=== PATIENT | male | born 1975 | race Caucasian/White ===

== ENCOUNTER 2017-02-21 04:49 | Inpatient (IN) ==
--- NOTE | 2017-02-21 05:46 | Emergency Department Note ---
Disposition Clinical Impression: Leg swelling Leg pain Qualifiers: Laterality: right Qualified Code(s): M79.604 - Pain in right leg Disposition: Still a Patient Condition: Fair Referrals: Swetha Caba CNP [Primary Care Provider] - Forms: ED Satisfaction Letter, Work/School Release General Adult HPI - General Chief complaint: ED General Medical Stated complaint: LEG PAIN Time Seen by Provider: 02/21/17 04:52 Source: patient, family Mode of arrival: ambulatory Limitations: no limitations Nursing Notes Reviewed: Yes Vital Signs Reviewed: Yes - History of Present Illness HPI Narrative: 41-year-old male presenting to the emergency department with a chief complaint of right lower extremity pain. Patient states approximately 2 weeks ago he went to his primary care physician for a mass he noted in his right groin. He was concerned it was a hernia. He states he had an ultrasound completed which showed lymphadenopathy. Since then he is started to have right lower extremity swelling and pain. He states it acutely got worse on Thursday. He states he is unable to walk now at this time. He describes chills and nausea and overall not feeling well. He denies any fevers or vomiting at home. He states the pain starts in his right groin in is a shooting sensation down his right leg towards his knee. He also describes unilateral leg swelling from the groin to the knee. Patient has no significant past medical history and 19 on any medications at this time. Patient states his primary care physician wanted to get a CT of the right lower extremity. Pain Scale: 10 - Related Data Home Medications Medication Instructions Recorded Confirmed Metformin 500 mg PO BID 10/12/14 10/12/14 Zoloft 200 mg PO DAILY 10/12/14 10/12/14 Previous Rx's Medication Instructions Recorded Gabapentin [Neurontin] 300 mg PO TID #90 capsule 10/15/14 Metformin [Glucophage] 500 mg PO BID tablet 10/15/14 Perphenazine [Trilafon] 2 mg PO HS #30 tablet 10/15/14 Sertraline [Zoloft] 200 mg PO DAILY #30 tablet 10/15/14 TraZODone 50 mg PO HS PRN 30 Days tablet 10/15/14 metFORMIN [Glucophage] 500 mg PO BIDWM #30 tablet 07/31/15 hydrOXYzine HCl [Hydroxyzine HCl] 25 mg PO Q6HR #20 tab 08/10/16 predniSONE [PredniSONE] 60 mg PO DAILY #15 tablet 08/10/16 Allergies Allergy/AdvReac Type Severity Reaction Status Date / Time acetaminophen [From Vicodin] Allergy Anaphylaxis Verified 02/21/17 04:49 hydrocodone [From Vicodin] Allergy Anaphylaxis Verified 02/21/17 04:49 Oxycodone [From Percocet] Allergy Anaphylaxis Verified 02/21/17 04:49 All systems ED: reviewed and negative except as stated. Constitutional: Reports: chills. Denies: fever Eyes: Reports: as per HPI ENT ED: Reports: as per HPI Cardiovascular: Denies: chest pain, palpitations Respiratory: Denies: cough, wheezes Gastrointestinal: Reports: abdominal pain, nausea. Denies: vomiting Genitourinary: Reports: as per HPI Musculoskeletal: Reports: as per HPI Integumentary: Denies: rash, abrasion Neurological: Reports: as per HPI Psychiatric: Reports: as per HPI Endocrine: Reports: as per HPI Hematological/Lymphatic: Reports: as per HPI Allergic/Immunologic: Reports: as per HPI Past Medical History - Past Medical History Attestation: Yes The following information was validated with the patient. Medical history: Reports: diabetes Surgical history: Reports: no surgical history Psychiatric history: Reports: depression, PTSD, prior suicide attempt, previous psychiatric hospitalization - Social History Smoking Status: Former smoker Smokeless Tobacco Status: No Alcohol use: Reports: occasionally Drug use: Reports: none Physical Exam - General Limitations: no limitations General appearance: alert, in no apparent distress - Head Head exam: atraumatic, normocephalic, normal inspection - Eye Eye exam: Present: normal appearance. Absent: scleral icterus, conjunctival injection - Chest Chest inspection: Present: normal inspection, symmetric chest wall rise. Absent : tenderness, rash - Respiratory Respiratory exam: Present: normal lung sounds bilaterally. Absent: respiratory distress, wheezes - Cardiovascular Cardiovascular exam: Present: regular rate, normal rhythm, normal heart sounds - Abdominal Exam Abdominal exam: Present: soft, tenderness. Absent: distention, guarding, rebound, rigidity Abdominal tenderness: Present: RLQ, LLQ, mild - Extremities Exam Extremities exam: Present: other (Right lower extremity has unilateral swelling in the thigh. Patient has severe pain on palpation on the entire thigh. Large palpable mass noted in the right groin. Distal pulses bilateral lower extremity 2+. Sensation intact bilateral lower extremities. No crepitus on palpation) - Neurological Exam Neurological exam: Present: alert, oriented X3 - Psychiatric Psychiatric exam: Present: normal affect, normal mood - Skin Skin exam: Present: warm, intact Course Course Narrative: 41-year-old male complaining of right lower extremity pain with a large palpable lymph node in the groin and and pain out of proportion. The patient is alert and oriented 3 in the room and stable vital signs at this time. We will obtain basic lab work including CBC, CMP, lactic acid. We will also perform a CT of the abdomen, pelvis and right lower extremity. Disposition pending results. Patient agrees with this plan. - Reevaluation(s) Reevaluation #1: Patient's lab results are within normal limits. CT results pending. I will sign the patient out to fellow resident in the day team for further management. The patient is alert and oriented 3 in the room with stable vital signs at this time. He agrees with this plan. Vital Signs Temperature 98.4 F 02/21/17 04:49 Pulse Rate 84 02/21/17 04:49 Respiratory Rate 16 02/21/17 04:49 Blood Pressure 112/67 02/21/17 04:49 O2 Sat by Pulse Oximetry 97 02/21/17 04:49 Temperature 98.4 F 02/21/17 04:49 Pulse Rate 94 02/21/17 07:24 Respiratory Rate 16 02/21/17 07:24 Blood Pressure 116/77 02/21/17 07:24 O2 Sat by Pulse Oximetry 96 02/21/17 07:24 Oxygen Delivery Oxygen Delivery Room Air Medical Decision Making - Lab Data Result diagrams: 02/21/17 05:45 02/21/17 05:45 Lab Results 02/21/17 02/21/17 02/21/17 Range/Units 05:45 05:45 07:26 WBC 10.8 (4.3-11.1) K/mcL RBC 4.62 (4.19-5.50) M/mcL Hgb 13.9 (12.9-16.9) g/dL Hct 40.6 (37.5-50.1) % MCV 87.9 (83.0-100.0) fL MCH 30.1 (28.0-33.3) pg MCHC 34.2 (31.6-35.5) g/dL RDW 11.9 (11.5-14.5) % Plt Count 262 (140-400) K/mcL MPV 9.2 L (9.4-12.4) fL Immature Gran % 0.5 (0-4) % Seg Neutrophils % 52.8 % Lymphocytes % 26.0 % Monocytes % 17.2 % Eosinophils % 2.4 % Basophils % 1.1 % Neutrophils # 5.7 (1.6-8.9) K/mcL Lymphocytes # 2.8 (0.6-4.6) K/mcL Monocytes # 1.9 H (0.0-1.3) K/mcL Eosinophils # 0.3 (0.0-0.6) K/mcL Basophils # 0.1 (0.0-0.2) K/mcL Sodium 136 (136-145) mEq/L Potassium 4.3 (3.5-4.5) mEq/L Chloride 101 (98-109) mEq/L Carbon Dioxide 27 (19-29) mEq/L BUN 20 (8-26) mg/dL Creatinine 0.93 (0.72-1.25) mg/dL Est GFR ( Amer) > 60 (> 60) Est GFR (Non-Af Amer) > 60 (> 60) BUN/Creatinine Ratio 22 (6-26) Glucose 295 H (70-99) mg/dL Calculated Osmolality 296 (280-300) Lactic Acid 1.0 (0.5-2.2) mmol/L Calcium 9.7 (8.6-10.8) mg/dL Total Bilirubin 0.4 (0.2-1.2) mg/dL Direct Bilirubin 0.2 (0.0-0.5) mg/dL Indirect Bilirubin 0.2 (0.0-1.2) mg/dL AST 12 (5-34) Units/L ALT 12 (0-55) Units/L Alkaline Phosphatase 132 H (38-126) Units/L Serum Total Protein 8.0 (6.0-8.3) g/dL Albumin 3.1 L (3.5-5.0) g/dL Globulin 4.9 H (2.4-3.5) g/dL Albumin/Globulin Ratio 0.6 L (1.1-2.2) Attestation Statement - Attestation Attestation: I examined this patient and my medical decision-making was reviewed with the Resident Physician. I agree with the documented findings, disposition and treatment plan as described except to the extent set forth below. Patient to ED with right leg swelling. Patient has been having pain in his right groin. Outpatient ultrasound that showed an enlarged lymph node. Saw his PCP today who recommended to come to the ED as he would not get a CT report back Week. On examination the patient is a moderate amount of swelling of the right thigh. No erythema. No warmth. Palpable inguinal lymphadenopathy. No axillary lymph nodes. Plan. Patient denies any cat scratches. He denies any symptoms of STI or possibility of STI. No night sweats. No weight loss. CT shows lymphadenopathy. Will check ultrasound rule out DVT. Will be signed out to day shift.
[2017-02-21 05:56] LABS: Basophils # 0.1 K/mcL (0.0-0.2); Basophils % 1.1 %; Eosinophils # 0.3 K/mcL (0.0-0.6); Eosinophils % 2.4 %; Hematocrit 40.6 % (37.5-50.1); Hemoglobin 13.9 g/dL (12.9-16.9); Immature Granulocytes % 0.5 % (0-4); Lymphocytes # 2.8 K/mcL (0.6-4.6); Mean Corpuscular HGB Conc 34.2 g/dL (31.6-35.5); Mean Corpuscular Hemoglobin 30.1 pg (28.0-33.3); Mean Corpuscular Volume 87.9 fL (83.0-100.0); Mean Platelet Volume 9.2 fL (9.4-12.4); Monocytes # 1.9 K/mcL (0.0-1.3); Monocytes % 17.2 %; Neutrophils # 5.7 K/mcL (1.6-8.9); Platelet Count 262 K/mcL (140-400); Red Blood Count 4.62 M/mcL (4.19-5.50); Red Cell Distribution Width 11.9 % (11.5-14.5); Segmented Neutrophils % 52.8 %
[2017-02-21 06:11] LABS: Alanine Aminotransferase 12 Units/L (0-55); Albumin 3.1 g/dL (3.5-5.0); Albumin/Globulin Ratio 0.6 (1.1-2.2); Alkaline Phosphatase 132 Units/L (38-126); Aspartate Amino Transferase 12 Units/L (5-34); BUN/Creatinine Ratio 22 (6-26); Bilirubin,Direct 0.2 mg/dL (0.0-0.5); Bilirubin,Indirect 0.2 mg/dL (0.0-1.2); Bilirubin,Total 0.4 mg/dL (0.2-1.2); Blood Urea Nitrogen 20 mg/dL (8-26); Calcium 9.7 mg/dL (8.6-10.8); Carbon Dioxide 27 mEq/L (19-29); Chloride 101 mEq/L (98-109); Globulin 4.9 g/dL (2.4-3.5); Glucose 295 mg/dL (70-99); Osmolality,Calculated 296 (280-300); Potassium 4.3 mEq/L (3.5-4.5); Sodium 136 mEq/L (136-145); eGFR For African Americans > 60 (> 60); eGFR For Non-African Americans > 60 (> 60)
[2017-02-21] MEDS ORDERED: Lidocaine/EPI 1:100k 1% 20 ML VIAL INFILT ONE (07:41)
--- NOTE | 2017-02-21 08:24 | Emergency Department Note ---
Disposition Clinical Impression: Leg swelling, Inguinal lymphadenopathy Leg pain Qualifiers: Laterality: right Qualified Code(s): M79.604 - Pain in right leg Disposition: Admitted As Inpatient Condition: Undetermined Time of Disposition: 10:29 Extremity Problem HPI - General Chief complaint: ED General Medical Stated complaint: LEG PAIN Time Seen by Provider: 02/21/17 04:52 Source: patient, family Mode of arrival: ambulatory Limitations: no limitations Nursing Notes Reviewed: Yes Vital Signs Reviewed: Yes - History of Present Illness HPI Narrative: 41-year-old male that was a signout from the 19 arrives to the emergency department with multiple complaints to include right inguinal lymphadenopathy and pain as well as swelling in his right lower extremity. The patient has had multiple visits to various physicians with regards to this in the past. CT scan demonstrates inguinal on the right side lymphadenopathy as well as a moderate right knee effusion. On physical exam the patient's right lower extremity is swelling without any erythema. The patient denies any sexually transmitted diseases, fevers, chills and primarily complains of pain. Patient denies any other complaints at this time. Pt Subjective Complaint: extremity pain, extremity swelling Onset (ago): week(s) (3) Consistency: constant, Worsening Injury Location: right, lower extremity Pain Scale: 10 Quality: aching Radiation: proximal, distal Improves with: nothing Worsens with: nothing Associated symptoms: Reports: denies other symptoms - Related Data Home Medications Medication Instructions Recorded Confirmed Doxycycline Hyclate [Vibramycin] 100 mg PO BID 02/21/17 02/21/17 Insulin Glargine,Hum.rec.anlog 14 unit SQ QPM 02/21/17 02/21/17 [Basaglar Kwikpen U-100] Sertraline [Zoloft] 25 mg PO BID 02/21/17 02/21/17 Allergies Allergy/AdvReac Type Severity Reaction Status Date / Time acetaminophen [From Vicodin] Allergy Anaphylaxis Verified 02/21/17 04:49 hydrocodone [From Vicodin] Allergy Anaphylaxis Verified 02/21/17 04:49 Oxycodone [From Percocet] Allergy Anaphylaxis Verified 02/21/17 04:49 All systems ED: reviewed and negative except as stated. Constitutional: Reports: chills. Denies: fever Eyes: Reports: as per HPI ENT ED: Reports: as per HPI Cardiovascular: Denies: chest pain, palpitations Respiratory: Denies: cough, wheezes Gastrointestinal: Reports: abdominal pain, nausea. Denies: vomiting Genitourinary: Reports: as per HPI Musculoskeletal: Reports: as per HPI Integumentary: Denies: rash, abrasion Neurological: Reports: as per HPI Psychiatric: Reports: as per HPI Endocrine: Reports: as per HPI Hematological/Lymphatic: Reports: as per HPI Allergic/Immunologic: Reports: as per HPI Past Medical History - Past Medical History Attestation: Yes The following information was validated with the patient. Source: patient Medical history: Reports: diabetes Surgical history: Reports: no surgical history Psychiatric history: Reports: depression, PTSD, prior suicide attempt, previous psychiatric hospitalization - Social History Smoking Status: Former smoker Smokeless Tobacco Status: No Alcohol use: Reports: occasionally Drug use: Reports: none Physical Exam - General Limitations: no limitations General appearance: alert, in no apparent distress - Head Head exam: atraumatic, normocephalic, normal inspection - Eye Eye exam: Present: normal appearance, PERRL, EOMI - ENT ENT exam: normal exam, normal oropharynx, mucous membranes moist - Neck Neck exam: Present: normal inspection, full ROM, trachea midline - Chest Chest inspection: Present: normal inspection, symmetric chest wall rise - Respiratory Respiratory exam: Present: normal lung sounds bilaterally - Cardiovascular Cardiovascular exam: Present: regular rate, normal rhythm, normal heart sounds - Abdominal Exam Abdominal exam: Present: soft, Non-Tender. Absent: tenderness, distention, guarding, rebound, rigidity - Extremities Exam Extremities exam: Present: full ROM, tenderness, other (Patient has enlarged right inguinal lymph node, full range of motion, tenderness to right inguinal lymph node as well as right side. The patient does have what appears to be a very superficial effusion of the right knee. It appears to superior to the knee joint itself and primarily associated with the patellar region.) Course - Consultations Consultation #1: I spoke Vital Signs Temperature 98.4 F 02/21/17 04:49 Pulse Rate 84 02/21/17 04:49 Respiratory Rate 16 02/21/17 04:49 Blood Pressure 112/67 02/21/17 04:49 O2 Sat by Pulse Oximetry 97 02/21/17 04:49 Temperature 98.4 F 02/21/17 04:49 Pulse Rate 78 02/21/17 11:33 Respiratory Rate 14 02/21/17 11:33 Blood Pressure 116/67 02/21/17 11:33 O2 Sat by Pulse Oximetry 96 02/21/17 11:33 Oxygen Delivery Oxygen Delivery Room Air Extremity Problem, Nontraumati - MDM Narrative Medical decision making narrative: Patient's workup here in the emergency department demonstrates a right inguinal lymphadenopathy. The patient does have a noted right knee effusion but this appears to be swelling associated and secondary to the patient's inguinal lymphadenopathy. I do not feel as though this is a septic joint as his knee is not erythematous and is not hot to the touch. We will begin the patient on Rocephin and azithromycin at this time with concern for possible infection. We will consult hematology and oncology. The patient's DVT study is negative for any acute findings. After speaking with orthopedic surgery, they did not recommend a tap of the knee at this time. We will admit the patient to the hospitalist with IV antibiotic therapy as well as consultation to about hematology and oncology and orthopedic surgery. Patient made aware and agrees to plan. Accepted by the hospitalist, Dr. Watson. - Lab Data Lab results reviewed: Yes I reviewed the patient's lab results. Result diagrams: 02/21/17 05:45 02/21/17 05:45 Lab Results 02/21/17 02/21/17 02/21/17 Range/Units 05:45 05:45 07:05 WBC 10.8 (4.3-11.1) K/mcL RBC 4.62 (4.19-5.50) M/mcL Hgb 13.9 (12.9-16.9) g/dL Hct 40.6 (37.5-50.1) % MCV 87.9 (83.0-100.0) fL MCH 30.1 (28.0-33.3) pg MCHC 34.2 (31.6-35.5) g/dL RDW 11.9 (11.5-14.5) % Plt Count 262 (140-400) K/mcL MPV 9.2 L (9.4-12.4) fL Immature Gran % 0.5 (0-4) % Seg Neutrophils % 52.8 % Lymphocytes % 26.0 % Monocytes % 17.2 % Eosinophils % 2.4 % Basophils % 1.1 % Neutrophils # 5.7 (1.6-8.9) K/mcL Lymphocytes # 2.8 (0.6-4.6) K/mcL Monocytes # 1.9 H (0.0-1.3) K/mcL Eosinophils # 0.3 (0.0-0.6) K/mcL Basophils # 0.1 (0.0-0.2) K/mcL ESR >= 130 H (0-10) mm/hr Sodium 136 (136-145) mEq/L Potassium 4.3 (3.5-4.5) mEq/L Chloride 101 (98-109) mEq/L Carbon Dioxide 27 (19-29) mEq/L BUN 20 (8-26) mg/dL Creatinine 0.93 (0.72-1.25) mg/dL Est GFR ( Amer) > 60 (> 60) Est GFR (Non-Af Amer) > 60 (> 60) BUN/Creatinine Ratio 22 (6-26) Glucose 295 H (70-99) mg/dL Calculated Osmolality 296 (280-300) Lactic Acid (0.5-2.2) mmol/L Calcium 9.7 (8.6-10.8) mg/dL Total Bilirubin 0.4 (0.2-1.2) mg/dL Direct Bilirubin 0.2 (0.0-0.5) mg/dL Indirect Bilirubin 0.2 (0.0-1.2) mg/dL AST 12 (5-34) Units/L ALT 12 (0-55) Units/L Alkaline Phosphatase 132 H (38-126) Units/L Creatine Kinase 56 (30-200) Units/L C-Reactive Protein 128 H (Less than 5) mg/L Serum Total Protein 8.0 (6.0-8.3) g/dL Albumin 3.1 L (3.5-5.0) g/dL Globulin 4.9 H (2.4-3.5) g/dL Albumin/Globulin Ratio 0.6 L (1.1-2.2) Chlam trachomat DNA PCR (Not Detect) N.gonorrhoeae DNA (PCR) (Not Detect) 02/21/17 02/21/17 Range/Units 07:26 09:29 WBC (4.3-11.1) K/mcL RBC (4.19-5.50) M/mcL Hgb (12.9-16.9) g/dL Hct (37.5-50.1) % MCV (83.0-100.0) fL MCH (28.0-33.3) pg MCHC (31.6-35.5) g/dL RDW (11.5-14.5) % Plt Count (140-400) K/mcL MPV (9.4-12.4) fL Immature Gran % (0-4) % Seg Neutrophils % % Lymphocytes % % Monocytes % % Eosinophils % % Basophils % % Neutrophils # (1.6-8.9) K/mcL Lymphocytes # (0.6-4.6) K/mcL Monocytes # (0.0-1.3) K/mcL Eosinophils # (0.0-0.6) K/mcL Basophils # (0.0-0.2) K/mcL ESR (0-10) mm/hr Sodium (136-145) mEq/L Potassium (3.5-4.5) mEq/L Chloride (98-109) mEq/L Carbon Dioxide (19-29) mEq/L BUN (8-26) mg/dL Creatinine (0.72-1.25) mg/dL Est GFR ( Amer) (> 60) Est GFR (Non-Af Amer) (> 60) BUN/Creatinine Ratio (6-26) Glucose (70-99) mg/dL Calculated Osmolality (280-300) Lactic Acid 1.0 (0.5-2.2) mmol/L Calcium (8.6-10.8) mg/dL Total Bilirubin (0.2-1.2) mg/dL Direct Bilirubin (0.0-0.5) mg/dL Indirect Bilirubin (0.0-1.2) mg/dL AST (5-34) Units/L ALT (0-55) Units/L Alkaline Phosphatase (38-126) Units/L Creatine Kinase (30-200) Units/L C-Reactive Protein (Less than 5) mg/L Serum Total Protein (6.0-8.3) g/dL Albumin (3.5-5.0) g/dL Globulin (2.4-3.5) g/dL Albumin/Globulin Ratio (1.1-2.2) Chlam trachomat DNA PCR NOT DETECTED (Not Detect) N.gonorrhoeae DNA (PCR) NOT DETECTED (Not Detect) - Radiology Data Radiology results reviewed: Yes I reviewed the patient's radiology results. Attestation Statement - Attestation Attestation: I examined this patient and my medical decision-making was reviewed with the Resident Physician, Dr. Webb. I agree with the documented findings, disposition and treatment plan as described except to the extent set forth below. Patient is a 41-year-old white male history of diabetes on insulin who presents to the emergency department with a three-week history of gradually worsening right inguinal adenopathy and associated groin pain. Patient states that this has gradually worsened to cause swelling and pain into his right thigh and medial aspect of his knee. Patient was signed out to us by Dr. Pacheco and the night custodian team, after their initial evaluation, order of baseline labs, CT abdomen and pelvis with contrast as well as a CT scan of the right lower extremity. Patient CT of the lower extremity with pending at the time of signout. We were told that patient denied any history of STDs no concern with possibility of contraction of an STD with GC or chlamydia. Patient does have a cat so unclear possible etiology Scratch fever adenopathy. On our assessment we added blood cultures, sedimentation rate and CRP. I agree with patient's physical exam findings as documented. Vital signs are stable. Pt with elevated blood sugar but no acidosis. Patient's CT scan confirms the inguinal adenopathy no intramuscular or joint infections and moderate knee effusion is noted. Clinically the majority of the edema that seen his distal thigh just superior to the patella and that seems to extend medially on the medial aspect of the knee. Patient has been on doxycycline for the past 6 days with no improvement of symptoms. His sedimentation rate is significantly elevated over 100, and CRP is elevated as well. Lower extremity venous Doppler was negative for DVT. He should also had an outpatient scrotal ultrasound by his family doctor prior to the ED evaluation. We went ahead and consult orthopedics from the emergency department and discussed the clinical progression with an hour whether they would tap this knee. I do not feel the etiology of this issue was from the knee and actually was from the groin and progressed distal. They agreed with holding off on any joint injection or aspiration and will consult on the patient. We also spoke with heme/onc who will also consult on the patient as well in regards to the adenopathy. Patient was covered with IV antibiotics cultures are pending. Case was discussed with hospitalist and the patient will be admitted for further evaluation and management of these symptoms. Patient's vital signs were stable throughout his ED course. Patient received IV the antibiotic coverage covering possible GC chlamydia exposure.
[2017-02-21 09:46] LABS: C-Reactive Protein 128 mg/L (Less than 5); Creatine Kinase 56 Units/L (30-200)
[2017-02-21] MEDS ORDERED: Azithromycin 250 MG TABLET PO ONE (09:59)
[2017-02-21] MEDS ORDERED: cefTRIAXone 1,000 MG in Water for inj. (sterile) 10 ML IVP ONE (09:59)
[2017-02-21] MEDS ORDERED: Doxycycline 100 MG in 0.9 % Sodium Chloride Mini Bag 100 ML IVPB ONE (10:07)
[2017-02-21] MEDS ORDERED: Ibuprofen 400 MG TABLET PO PRN (11:39)
[2017-02-21] MEDS ORDERED: Naloxone 0.4 MG/ML INJ IVP PRN (11:39)
[2017-02-21] MEDS ORDERED: Ondansetron 4 MG/2 ML VIAL IVP PRN (11:39)
[2017-02-21] MEDS ORDERED: D5% in Water 1,000 ML IVC PRN (11:47)
[2017-02-21] MEDS ORDERED: Dextrose Gel 15 GM PO PRN ×2 (11:47)
[2017-02-21] MEDS ORDERED: *HR* Dextrose 50 % in Water (Syg) 50 ML SYRINGE IVP PRN (11:47)
--- NOTE | 2017-02-21 12:57 | Internal Med History&Physical ---
<El [place]wood - Last Filed: 02/21/17 15:54> Date of Encounter: 02/21/17 Time of Encounter: 10:15 Assessment and Plan (1) Inguinal lymphadenopathy Current visit: Yes Status: Acute Acute right inguinal lymphadenopathy for the past three weeks. Pt. reports he is sexually active and exclusive w/girlfriend. Chlamydia and gonorrhea panels ordered. Blood cultures x2. Pt. reports he was seen previously for this and placed on by mouth doxycycline which he reports did not help. Pt. states he began having swelling and pain in the right knee as well 6 days ago. Cat scratch fever in differential dx d/t pts. report of cat climbing his leg. IVPB Zosyn 3.375 gm Q8 for infection coverage. Will adjust abx coverage based on culture results. Stair-step pain medications for pain mgmt. Ortho consult ordered in ED. Oncology consult ordered in ED. ID consult ordered. Monitor pt. and f/u labs. Pt. discussed w/Dr. aWtson who agrees w/plan of care. Pt. is high risk for further morbidity based on failing OP abx tx, current sx, worsening infection, and uncontrolled DM. Inpatient. (2) Pain and swelling of right knee Current visit: Yes Status: Acute Acute pain and edema in rt. knee for the past 6 days. Pt. reports difficulty w/ ambulation d/t pain/swelling. Appears infectious and r/t inguinal lymphadenopathy that has been present for the past three weeks. Possible cat scratch fever d/t pts. report of cat climbing his leg. IVPB Zosyn 3.375 gm Q8 for infection coverage. Blood cultures x2. Will adjust abx coverage based on culture results. Stair-step pain medications for pain mgmt. Ortho consult ordered in ED. Oncology consult ordered in ED. ID consult ordered. Monitor pt. and f/u labs. (3) Diabetes Current visit: Yes Status: Chronic Hx of chronic diabetes controlled w/insulin. Pt. reports non-compliance d/t being busy. Will continue pts. HS insulin and add low-dose correction sliding scale insulin w/hypoglycemic protocol. A1c in a.m. labs. BG checks ACHS. Diabetes education consult ordered. ADA diet. 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 Monitor pt. for signs of bleeding. Internal Medicine - H&P: HPI Chief complaint: Right groin and right knee pain Admitted From: Emergency Dept Plans for Post Hospital Care: Home History of present illness: Mr. Serra is a 41 year old male with medical hx of diabetes controlled with insulin presents from the ED with chief complaint of swollen lymph glands in the right groin for the past three weeks that progressed to swollen right knee within the past 6 days. Pt. denies previous sx prior to this. Pt. reports he was seen previously for this and was placed on PO doxycycline. He states he completed 7 of the 10 days and the abx was not helping his sx so he came to ED. Pt. reports he is sexually active and exclusive w/his girlfriend who is present on exam. Both report being tested for STDs prior to dating several years ago. Pt. reports hx of depression, PTSD, prior suicide attempt, and previous psychiatric hospitalization. Pt. reports smoking 1 PPD but quitting 3 weeks ago when these sx started. Pt. has familial hx of cancer that he is anxious about. Pt. reports mild nausea and itchiness on the right leg w/several scabbed sores but denies recent illness, fever, chills, vomiting, chest pain, palpitations, cough, abdominal pain, changes in vision, unusual bleeding, diarrhea, constipation, weakness, dizziness, lightheadedness, pre-syncope, or syncope. Past Med Surg Social Fam HX - Past Medical History Source: patient, old records reviewed, obtained from family Medical history: diabetes (Insulin controlled) Psychiatric history: depression, PTSD, prior suicide attempt, previous psychiatric hospitalization - Past Surgical History Surgical History: no surgical history - Social History Smoking Status: Former smoker Packs per day: 1 PPD Smokeless Tobacco Status: No Alcohol use: occasionally Drug use: none Occupational status: employed Current living situation: Home, With Family Activity Level: Independent ambulation Recent Out of Country Travel Within the Last 8 Weeks: No Exposure or Possible Exposure to Illness During Travel: No - Family History Father Race: Family Member Ethnicity: Non- Living Status: Age at : 63 Cause of : Pancreatic cancer Hx Family Cancer: Yes (Liver, pancreatic, gallbladder tumors) Mother Race: Family Member Ethnicity: Non- Living Status: Still Living Hx Family Medical Disorders: No Brother Race: Family Member Ethnicity: Non- Living Status: Still Living Hx Family Medical Disorders: No Sister Race: Family Member Ethnicity: Non- Living Status: Still Living Hx Family Medical Disorders: No Internal Medicine - H&P: Meds Doxycycline Hyclate [Vibramycin] 100 mg PO BID 02/21/17 [History] Insulin Glargine,Hum.rec.anlog [Basaglar Kwikpen U-100] 14 unit SQ QPM 02/21/17 [History] Sertraline [Zoloft] 25 mg PO BID 02/21/17 [History] 3 Allergy/AdvReac Type Severity Reaction Status Date / Time acetaminophen [From Vicodin] Allergy Anaphylaxis Verified 02/21/17 04:49 hydrocodone [From Vicodin] Allergy Anaphylaxis Verified 02/21/17 04:49 Oxycodone [From Percocet] Allergy Anaphylaxis Verified 02/21/17 04:49 All Systems PM: A 10-system review of systems was performed and is negative for pertinent findings except as documented above in the HPI. - Constitutional Constitutional: no chills, no fever(s), no night sweats - EENT Eyes: no change in vision, no discharge, no pain, no photophobia Ears: no ear discharge, no ear pain, no tinnitus Nose, mouth and throat: no dysphagia, no nasal discharge, no neck pain, no sore throat - Breasts Breasts: as per HPI - Cardiovascular Cardiovascular ROS IM: no chest pain, no diaphoresis, no dyspnea, no lightheadedness, no palpitations, no syncope - Respiratory Respiratory: no cough, no dyspnea, no wheezing, no excessive phlegm production - Gastrointestinal Gastrointestinal: no abdominal pain, no diarrhea, no hematemesis, no hematochezia, no melena, no nausea, no vomiting - Genitourinary Genitourinary ROS male: as per HPI, other (Right inguinal pain and swelling) - Musculoskeletal Musculoskeletal ROS IM: no numbness, no tingling - Integumentary Integumentary IM: as per HPI, sores Additional comments: Pt. has several scabbed sores on right thigh. Pt. reports having a cat that sometimes climbs his leg. - Neurological Neurological ROS: no confusion, no convulsions, no focal weakness, no numbness, no tingling, no tremor(s) - Psychiatric Psychiatric: as per HPI, depression, other Additional comments: PTSD, prior suicide attempt, previous psychiatric hospitalization - Endocrine Endocrine IM: as per HPI - Hematologic/Lymphatic Hematologic/Lymphatic: no easy bruising - Allergic/Immunologic Allergic/Immunologic: as per HPI - Constitutional Vitals: Temp Pulse Resp BP Pulse Ox 98.4 F 78 14 116/67 96 02/21/17 04:49 02/21/17 11:33 02/21/17 11:33 02/21/17 11:33 02/21/17 11:33 General appearance: Present: cooperative, mild distress, A&O X 3, pleasant, answers questions appropriately - Head Head exam: Present: atraumatic, normal inspection, normocephalic - Eye Eye exam: Present: PERRL, conjuntiva pink, sclera anicteric Pupils: Present: PERRL - ENT ENT exam: Present: normal exam, normal external ear exam - Neck Neck exam general surgery: Present: normal inspection, supple, trachea midline. Absent: lymphadenopathy - Respiratory Respiratory exam: Present: CTAB. Absent: accessory muscle use, rales, rhonchi, wheezes - Cardiovascular Cardiovascular exam: Present: RRR, +S1, +S2. Absent: diastolic murmur, gallop, rubs, systolic murmur - GI/Abdominal GI/Abdominal exam: Present: normal bowel sounds, soft, no peritoneal signs. Absent: distended, tenderness - Rectal Rectal exam: Present: deferred - Additional comments: exam deferred. - Extremities Exam Extremities exam: Present: joint swelling (Right knee), tenderness (Right knee) , warm (Right knee) - Back Exam Back exam: Present: normal inspection - Neurological Exam Neurological exam: Present: CN II-XII intact, oriented X3, no focal deficits. Absent: pronater drift, facial droop, speech deficit - Psychiatric Psychiatric exam: Present: anxious (When discussing cancer ), normal affect, normal mood - Skin Skin exam: Present: dry, intact Additional comments: Pt. has several scabbed sores present on right thigh. Pt. reports they have a cat that sometimes climbs his leg. Internal Med - H&P Results - Labs CBC & Chem 7: 02/21/17 05:45 02/21/17 05:45 - Diagnostic Studies Other Images Additional comments: Impressions Lower Extremity CT 02/21/17 06:31 IMPRESSION: 1. Indeterminate right external iliac chain and inguinal lymphadenopathy. Cannot exclude neoplastic origin versus reactive etiology. 2. Moderate right knee joint effusion. D/ / 02/21/2017 09:44:09 Hu Núñez MD / soraya Interpreting Provider: Hu Núñez MD Chest x-ray Additional comments: Impressions Chest X-Ray 02/21/17 05:24 IMPRESSION: No acute process. D/ / Hu Núñez MD / Hu Núñez MD Interpreting Provider: Hu Núñez MD CT scan - abdomen Additional comments: Impressions Abdomen/Pelvis CT 02/21/17 05:14 IMPRESSION: Indeterminate right external iliac chain and right inguinal lymphadenopathy. Otherwise unremarkable study. D/ / 02/21/2017 09:15:23 Hu Núñez MD / soraya Interpreting Provider: Hu Núñez MD <Yoli Watson - Last Filed: 02/21/17 16:12> Date of Encounter: 02/21/17 Internal Medicine - H&P: HPI History of present illness: Mr. Serra is a 41 year old male All Systems PM: A 10-system review of systems was performed and is negative for pertinent findings except as documented above in the HPI. - Constitutional Vitals: Temp Pulse Resp BP Pulse Ox 98.8 F 81 16 100/69 97 02/21/17 14:22 02/21/17 14:22 02/21/17 14:22 02/21/17 14:22 02/21/17 14:22 Internal Med - H&P Results - Labs CBC & Chem 7: 02/21/17 05:45 02/21/17 05:45 - Attending Attestation I examined this patient and my medical decision-making was reviewed with the Resident Physician. I agree with the documented findings, disposition and treatment plan as described except to the extent set forth below.
[2017-02-21] MEDS: Ketorolac 30 MG/ML VIAL IVP PRN (14:26)
[2017-02-21] MEDS: Piperacillin/Tazobactam 3.375 GM/200 ML BAG IVPB SCH (16:50)
[2017-02-21] MEDS: Insulin LISPRO 300 UNITS/3 ML VIAL SQ SCH ×2 (16:50→21:44)
[2017-02-21] MEDS: Insulin DETEMIR 100 UNIT/ML X5UNITS SQ SCH (18:42)
[2017-02-21 20:17] LABS: Source,Synovial Fluid Right knee
[2017-02-21 23:17] LABS: Appearance,Synovial Fluid Hazy (Clear-Hazy); Color,Synovial Fluid Straw (Straw)
[2017-02-22] MEDS: Piperacillin/Tazobactam 3.375 GM/200 ML BAG IVPB SCH ×3 (00:09→16:48)
--- NOTE | 2017-02-22 01:22 | Orthopedic Consult Note ---
Date of Encounter: 02/22/17 Time of Encounter: 18:30 Assessment and Plan (1) Pain and swelling of right knee Current Visit: Yes Status: Acute possible septic knee An aspiration of the knee will be performed. Informed consent was obtained. Continue IV abx. Procedure: The right knee was prepped with Hibiclens. An 18-gauge needle was inserted superior and lateral. I aspirated 40 mL of clear straw-colored fluid. The fluid was sent off for cultures, cell count and crystals. The patient ordered procedure well. His range of motion improved immediately. History of Present Illness Chief complaint: Right knee pain HPI: Mr. Serra is a 41 year old male with a 3 wk h/o R groin pain and swelling. Pt was treated with outpatient po abx and failed tx. He reports right knee swelling since thursday that has been worsening. Pt has a significant PMH of IDDM. No h/o trauma. Denies STDs. No fevers or chills. He reports childhood trauma to the knee with a metal spike that penetrated his knee. The patient reports some improvement in his groin since admission with IV abx. Past Med Surg Social Fam HX - Past Medical History Medical history: diabetes (Insulin controlled) Psychiatric history: depression, PTSD, prior suicide attempt, previous psychiatric hospitalization - Past Surgical History Surgical History: no surgical history - Social History Smoking Status: Former smoker Packs per day: 1 PPD Smokeless Tobacco Status: No Alcohol use: occasionally Drug use: none - Family History Father Race: Family Member Ethnicity: Non- Living Status: Age at : 63 Cause of : Pancreatic cancer Hx Family Cancer: Yes (Liver, pancreatic, gallbladder tumors) Mother Race: Family Member Ethnicity: Non- Living Status: Still Living Hx Family Medical Disorders: No Brother Race: Family Member Ethnicity: Non- Living Status: Still Living Hx Family Medical Disorders: No Sister Race: Family Member Ethnicity: Non- Living Status: Still Living Hx Family Endocrine Disorder: Yes (DM) Hx Family Medical Disorders: No Medications and Allergies Doxycycline Hyclate [Vibramycin] 100 mg PO BID 02/21/17 [History] Insulin Glargine,Hum.rec.anlog [Basaglar Kwikpen U-100] 14 unit SQ QPM 02/21/17 [History] Sertraline [Zoloft] 25 mg PO BID 02/21/17 [History] 3 Allergy/AdvReac Type Severity Reaction Status Date / Time acetaminophen [From Vicodin] Allergy Anaphylaxis Verified 02/21/17 04:49 hydrocodone [From Vicodin] Allergy Anaphylaxis Verified 02/21/17 04:49 Oxycodone [From Percocet] Allergy Anaphylaxis Verified 02/21/17 04:49 All Systems Reviewed: A 10-system review of systems was performed and is negative for pertinent findings except as documented above in the HPI. - Musculoskeletal Musculoskeletal: joint swelling, limited range of motion Physical Exam - Constitutional Vitals: Temp Pulse Resp BP Pulse Ox 98.4 F 70 16 101/63 98 02/21/17 22:53 02/21/17 22:53 02/21/17 22:53 02/21/17 22:53 02/21/17 22:53 - Hip right Tenderness with palpation: anterior (palpable enlarged lymph nodes in groin, tender) - Knee right Appearance: effusion (no erythema) Effusion grade: grade 2 Tenderness with palpation knee: anterior Pain: with flexion Full ROM: yes (0-30) Crepitus with motion: No Results - Labs Result Diagrams: 02/22/17 04:34 02/22/17 04:34 Labs: Abnormal lab results MPV 9.2 fL (9.4-12.4) L 02/21/17 05:45 Monocytes # 1.9 K/mcL (0.0-1.3) H 02/21/17 05:45 ESR >= 130 mm/hr (0-10) H 02/21/17 07:05 Glucose 295 mg/dL (70-99) H 02/21/17 05:45 POC Glucose 285 (58-89) H 02/21/17 20:52 Alkaline Phosphatase 132 Units/L (38-126) H 02/21/17 05:45 C-Reactive Protein 128 mg/L (Less than 5) H 02/21/17 05:45 Albumin 3.1 g/dL (3.5-5.0) L 02/21/17 05:45 Globulin 4.9 g/dL (2.4-3.5) H 02/21/17 05:45 Albumin/Globulin Ratio 0.6 (1.1-2.2) L 12/16/17 05:45 Synovial Tot Nuc Cell 2793 TNC/mcL (0-200) H 02/21/17 19:49 All other labs normal. - Diagnostic results Knee CT: image reviewed (R knee effusion) Consult Discharge Plan - Plan Referrals: Swetha Caba, ANALYTICAL RESEARCH CHEMIST [Primary Care Provider] -
[2017-02-22 05:07] LABS: Basophils # 0.2 K/mcL (0.0-0.2); Basophils % 1.4 %; Eosinophils # 0.5 K/mcL (0.0-0.6); Eosinophils % 4.7 %; Hematocrit 40.1 % (37.5-50.1); Hemoglobin 13.6 g/dL (12.9-16.9); Immature Granulocytes % 0.4 % (0-4); Lymphocytes # 3.3 K/mcL (0.6-4.6); Lymphocytes % 29.4 %; Mean Corpuscular HGB Conc 33.9 g/dL (31.6-35.5); Mean Corpuscular Hemoglobin 30.8 pg (28.0-33.3); Mean Corpuscular Volume 90.9 fL (83.0-100.0); Mean Platelet Volume 9.4 fL (9.4-12.4); Monocytes # 1.7 K/mcL (0.0-1.3); Monocytes % 15.6 %; Neutrophils # 5.4 K/mcL (1.6-8.9); Platelet Count 257 K/mcL (140-400); Red Blood Count 4.41 M/mcL (4.19-5.50); Red Cell Distribution Width 12.1 % (11.5-14.5); Segmented Neutrophils % 48.5 %
[2017-02-22 05:30] LABS: Alanine Aminotransferase 11 Units/L (0-55); Albumin 2.8 g/dL (3.5-5.0); Albumin/Globulin Ratio 0.6 (1.1-2.2); Alkaline Phosphatase 102 Units/L (38-126); Aspartate Amino Transferase 13 Units/L (5-34); BUN/Creatinine Ratio 22 (6-26); Bilirubin,Total 0.5 mg/dL (0.2-1.2); Blood Urea Nitrogen 20 mg/dL (8-26); Calcium 9.1 mg/dL (8.6-10.8); Carbon Dioxide 27 mEq/L (19-29); Chloride 104 mEq/L (98-109); Chol/HDL Ratio 3.3 (0-4.9); Cholesterol 103 mg/dL (< 200); Globulin 4.6 g/dL (2.4-3.5); Glucose 137 mg/dL (70-99); HDL Cholesterol 31 mg/dL (40-59); LDL Cholesterol,Calculated 64 mg/dL (0-99); Magnesium 1.7 mg/dL (1.6-2.6); Osmolality,Calculated 293 (280-300); Potassium 4.3 mEq/L (3.5-4.5); Sodium 139 mEq/L (136-145); Total Protein 7.4 g/dL (6.0-8.3); Triglycerides 40 mg/dL (< 150); eGFR For African Americans > 60 (> 60); eGFR For Non-African Americans > 60 (> 60)
[2017-02-22] MEDS: *HR* Enoxaparin 40 MG/0.4 ML SYRINGE SQ SCH (06:08)
[2017-02-22] MEDS: Insulin LISPRO 300 UNITS/3 ML VIAL SQ SCH ×4 (08:36→20:20)
[2017-02-22] MEDS: Ketorolac 30 MG/ML VIAL IVP PRN ×2 (08:40→20:22)
--- NOTE | 2017-02-22 14:03 | Orthopedics Progress Note ---
Date of Encounter: 02/22/17 Time of Encounter: 14:00 - Assessment and Plan (1) Pain and swelling of right knee Current Visit: Yes Status: Acute The Gram stain was positive for few cocci. However the cell count was only 2k. Clinically he does not have a septic knee. We will continue observation. Continue IV antibiotics. Also add an NSAID and obtain x-rays of the knee. Subjective Principal diagnosis: Right knee effusion Interval history: Patient reports significant improvement in pain. Physical exam: Right knee has mild swelling with a grade 1 effusion. There is no warmth noted tenderness. He has full range of motion of the knee. No swelling distally and vessels intact distally. Inguinal lymph nodes distal swollen, patient reports that they feel smaller and is no longer tender. Objective Vital signs: Vital Signs Temp Pulse Resp BP Pulse Ox 02/22/17 10:59 98 F 77 19 104/60 93 02/22/17 07:04 98.4 F 83 16 105/69 93 02/22/17 04:20 98.2 F 72 16 111/71 96 02/21/17 22:53 98.4 F 70 16 101/63 98 02/21/17 19:16 98.5 F 76 16 101/58 97 02/21/17 14:22 98.8 F 81 16 100/69 97 Intake and Output 02/21/17 02/22/17 02/22/17 23:59 07:59 15:59 Intake Total 50 / 50 200 / 200 570 / 570 Balance 50 / 50 200 / 200 570 / 570 Intake: IV Fluids 50 / 50 200 / 200 150 / 150 Zosyn Premix 3.375 GM/200 ML 3. 50 / 50 200 / 200 150 / 150 375 gm In 200 ml @ 50 mls/hr IVPB Q8H [facility] Rx#:[id number] Oral 420 / 420 Other: Meal Breakfast Percent of Meal Consumed 100% Blood Glucose* 285 151 311 Incision: swollen - Labs CBC & BMP: 02/22/17 04:34 02/22/17 04:34 Labs: Abnormal lab results WBC 11.2 K/mcL (4.3-11.1) H 02/22/17 04:34 Monocytes # 1.7 K/mcL (0.0-1.3) H 02/22/17 04:34 ESR >= 130 mm/hr (0-10) H 02/21/17 07:05 Glucose 137 mg/dL (70-99) H 02/22/17 04:34 POC Glucose 285 (58-89) H 02/21/17 20:52 C-Reactive Protein 128 mg/L (Less than 5) H 02/21/17 05:45 Albumin 2.8 g/dL (3.5-5.0) L 02/22/17 04:34 Globulin 4.6 g/dL (2.4-3.5) H 02/22/17 04:34 Albumin/Globulin Ratio 0.6 (1.1-2.2) L 02/22/17 04:34 HDL Cholesterol 31 mg/dL (40-59) L 02/22/17 04:34 Synovial Tot Nuc Cell 2793 TNC/mcL (0-200) H 02/21/17 19:49 Consult Discharge Plan - Plan Referrals: Swetha Caba, CONE WORKER [Primary Care Provider] -
--- NOTE | 2017-02-22 15:20 | Internal Med Progress Note ---
Date of Encounter: 02/22/17 Time of Encounter: 15:18 - Assessment and plan (1) Effusion, right knee Current Visit: Yes Status: Acute Assessment and plan: with acute pain and edema to right knee for 6 days prior to presentation. Right lower extremity CT with moderate right knee joint effusion. S/p right knee aspiration. Also does not suspect septic knee based upon fluid analysis. Continue IV Zosyn, NSAID. Right knee x-ray pending. Ortho following. ID consulted (2) Inguinal lymphadenopathy Current Visit: Yes Status: Acute Assessment and plan: With acute right leg pain and swollen right inguinal lymph node. Right lower extremity CT with right external iliac chain and inguinal lymphadenopathy concerning for neoplastic or reactive etiology. Patient reports significant improvement in swelling and pain after right knee aspiration. ESR and CRP markedly elevated. Etiology unknown at this time. Cont ATB as noted above. Oncology and infectious disease consulted (3) Diabetes Current Visit: Yes Status: Chronic Assessment and plan: per hx. Blood sugars elevated. Cont home long-acting. Add SSI. Monitor blood sugar and titrate PRN Qualifiers: Diabetes mellitus type: type 2 Diabetes mellitus complication status: without complication Diabetes mellitus buttermilk drier operator insulin use: with buttermilk drier operator use Qualified Code(s): E11.9 - Type 2 diabetes mellitus without complications ; Z79.4 - terminal worker (current) use of insulin; Z79.4 - senior care (current) use of insulin; Z79.4 - senior care (current) use of insulin; Z79.4 - senior care ( current) use of insulin (4) DVT prophylaxis Current Visit: Yes Status: Acute Assessment and plan: lovenox - Time Spent With Patient 25 - 35 minutes - Subjective Interval history: Seen and examined at bedside. Patient is new to me, information obtained from chart review and patient report. Patient report some knee discomfort but overall significantly improved. He says swelling to right thigh and right groin is significantly improved. No fevers or chills, no drainage from right knee aspiration site. - Constitutional Vitals: Temp Pulse Resp BP Pulse Ox 98 F 77 19 104/60 93 02/22/17 10:59 02/22/17 10:59 02/22/17 10:59 02/22/17 10:59 02/22/17 10:59 General appearance: Present: cooperative, A&O X 3, pleasant, answers questions appropriately - Head Head exam: Present: atraumatic, normocephalic - Eye Eye exam: Present: PERRL, conjuntiva pink, sclera anicteric Pupils: Present: PERRL - Neck Neck exam general surgery: Present: supple, trachea midline. Absent: lymphadenopathy - Respiratory Respiratory exam: Present: CTAB. Absent: accessory muscle use, rales, rhonchi, wheezes - Cardiovascular Cardiovascular exam: Present: RRR, +S1, +S2. Absent: diastolic murmur, gallop, rubs, systolic murmur - GI/Abdominal GI/Abdominal exam: Present: normal bowel sounds, soft, no peritoneal signs. Absent: distended, tenderness - Extremities Exam Extremities exam: Present: pedal edema, warm, radial pulses palpable and symmetrical. Absent: calf tenderness, cyanotic Additional comments: trace, nonpitting edema in to right leg from knee to thigh. Enlarged right inguinal lymph node - Neurological Exam Neurological exam: Present: CN II-XII intact, oriented X3, no focal deficits. Absent: pronater drift, facial droop, speech deficit - Skin Skin exam: Present: dry, intact Internal Medicine: Result - Labs CBC & Chem 7: 02/22/17 04:34 02/22/17 04:34 Labs: Short CBC 02/22/17 Range/Units 04:34 WBC 11.2 H (4.3-11.1) K/mcL Hgb 13.6 (12.9-16.9) g/dL Hct 40.1 (37.5-50.1) % Plt Count 257 (140-400) K/mcL Neutrophils # 5.4 (1.6-8.9) K/mcL BMP 02/22/17 04:34 Sodium 139 Potassium 4.3 Chloride 104 Carbon Dioxide 27 BUN 20 Creatinine 0.91 Glucose 137 H Calcium 9.1 Liver Function 02/22/17 Range/Units 04:34 Total Bilirubin 0.5 (0.2-1.2) mg/dL AST 13 (5-34) Units/L ALT 11 (0-55) Units/L Alkaline Phosphatase 102 (38-126) Units/L Albumin 2.8 L (3.5-5.0) g/dL Consult Discharge Plan - Plan Referrals: Swetha Caba, PHARMACIST MANAGER [Primary Care Provider] -
[2017-02-22] MEDS: Insulin DETEMIR 100 UNIT/ML X5UNITS SQ SCH (20:22)
[2017-02-22] MEDS: Ibuprofen 400 MG TABLET PO SCH (20:22)
[2017-02-23] MEDS: Ibuprofen 400 MG TABLET PO SCH ×3 (00:07→12:07)
[2017-02-23] MEDS: Piperacillin/Tazobactam 3.375 GM/200 ML BAG IVPB SCH ×2 (00:08→08:11)
[2017-02-23] MEDS: *HR* Enoxaparin 40 MG/0.4 ML SYRINGE SQ SCH (06:07)
[2017-02-23] MEDS: Ketorolac 30 MG/ML VIAL IVP PRN ×2 (06:07→12:06)
[2017-02-23 06:15] LABS: Basophils # 0.1 K/mcL (0.0-0.2); Basophils % 1.3 %; Eosinophils # 0.6 K/mcL (0.0-0.6); Hematocrit 38.7 % (37.5-50.1); Hemoglobin 12.9 g/dL (12.9-16.9); Immature Granulocytes % 0.7 % (0-4); Lymphocytes # 3.2 K/mcL (0.6-4.6); Lymphocytes % 34.9 %; Mean Corpuscular HGB Conc 33.3 g/dL (31.6-35.5); Mean Corpuscular Hemoglobin 29.7 pg (28.0-33.3); Mean Corpuscular Volume 89.2 fL (83.0-100.0); Mean Platelet Volume 9.1 fL (9.4-12.4); Monocytes # 1.3 K/mcL (0.0-1.3); Monocytes % 14.2 %; Neutrophils # 3.9 K/mcL (1.6-8.9); Platelet Count 284 K/mcL (140-400); Red Blood Count 4.34 M/mcL (4.19-5.50); Red Cell Distribution Width 11.8 % (11.5-14.5); Segmented Neutrophils % 42.9 %
[2017-02-23 06:26] LABS: Alanine Aminotransferase 13 Units/L (0-55); Albumin 2.6 g/dL (3.5-5.0); Albumin/Globulin Ratio 0.6 (1.1-2.2); Alkaline Phosphatase 105 Units/L (38-126); Aspartate Amino Transferase 13 Units/L (5-34); BUN/Creatinine Ratio 21 (6-26); Bilirubin,Total 0.3 mg/dL (0.2-1.2); Blood Urea Nitrogen 20 mg/dL (8-26); Calcium 8.7 mg/dL (8.6-10.8); Carbon Dioxide 28 mEq/L (19-29); Chloride 105 mEq/L (98-109); Globulin 4.4 g/dL (2.4-3.5); Glucose 200 mg/dL (70-99); Osmolality,Calculated 294 (280-300); Potassium 4.1 mEq/L (3.5-4.5); Sodium 138 mEq/L (136-145); eGFR For African Americans > 60 (> 60); eGFR For Non-African Americans > 60 (> 60)
[2017-02-23] MEDS: Insulin LISPRO 300 UNITS/3 ML VIAL SQ SCH ×2 (08:10→12:06)
--- NOTE | 2017-02-23 09:10 | Orthopedics Progress Note ---
Date of Encounter: 02/23/17 Time of Encounter: 09:05 - Assessment and Plan (1) Pain and swelling of right knee Current Visit: Yes Status: Acute The Gram stain was positive for few cocci. Final cultures are negative. Low white cell count. Clinically he does not have a septic knee. Patient is still on IV antibiotics for inguinal lymphadenopathy, which is also improving. Continue NSAIDs. Start meloxicam 15 mg by mouth daily on discharge. Follow-up with Dr. Lopez on at 10 AM, at [facility]. Subjective Principal diagnosis: Right knee effusion Interval history: Patient reports significant improvement in pain. Physical exam: Right knee has mild swelling with a grade 1 effusion. No erythema. There is no warmth, no tenderness. He has full range of motion of the knee. No swelling distally and vessels intact distally. Inguinal lymph nodes still present but much smaller, nontender Objective Vital signs: Vital Signs Temp Pulse Resp BP Pulse Ox 02/23/17 07:35 98.1 F 71 17 106/68 93 02/23/17 00:00 97.9 F 70 16 120/68 96 02/22/17 19:22 98.1 F 81 16 120/72 98 02/22/17 16:16 97.7 F 84 19 131/74 95 02/22/17 10:59 98 F 77 19 104/60 93 Intake and Output 02/22/17 02/23/17 02/23/17 23:59 07:59 15:59 Intake Total 200 / 200 200 / 200 Balance 200 / 200 200 / 200 Intake: IV Fluids 200 / 200 200 / 200 Zosyn Premix 3.375 GM/200 ML 3. 200 / 200 200 / 200 375 gm In 200 ml @ 50 mls/hr IVPB Q8H [facility] Rx#:[id number] Other: Weight 79.968 kg Blood Glucose* 262 165 Patient Weight 02/23/17 23:59 Weight 79.968 kg Incision: swollen - Diagnostic Results Knee x-ray: image reviewed (No degenerative changes, very small effusion remaining) - Labs CBC & BMP: 02/23/17 05:35 02/23/17 05:35 Labs: Abnormal lab results MPV 9.1 fL (9.4-12.4) L 02/23/17 05:35 ESR 60 mm/hr (0-10) H 02/23/17 05:35 Glucose 200 mg/dL (70-99) H 02/23/17 05:35 POC Glucose 262 (58-89) H 02/22/17 19:19 C-Reactive Protein 52 mg/L (Less than 5) H 02/23/17 05:35 Albumin 2.6 g/dL (3.5-5.0) L 02/23/17 05:35 Globulin 4.4 g/dL (2.4-3.5) H 02/23/17 05:35 Albumin/Globulin Ratio 0.6 (1.1-2.2) L 02/23/17 05:35 HDL Cholesterol 31 mg/dL (40-59) L 02/22/17 04:34 Synovial Tot Nuc Cell 2793 TNC/mcL (0-200) H 02/21/17 19:49 Consult Discharge Plan - Plan Referrals: Froilan Lopez MD [Non-Partnered Physician] - 02/26/17 10:00 am Swetha Caba CNP [Primary Care Provider] -
[2017-02-23 11:24] VITALS: BP 117/68
--- NOTE | 2017-02-23 12:31 | Discharge Summary ---
Date of Encounter: 02/23/17 Time of Encounter: 12:31 - Discharge Diagnosis (1) Effusion, right knee Priority: Primary Status: Acute Comments: with acute pain and edema to right knee for 6 days prior to presentation. Right lower extremity CT with moderate right knee joint effusion. S/p right knee aspiration per ortho. Fluid analysis not indicative of septic knee. Treated with IV Zosyn, NSAID. Repeat right knee x-ray with decreased size of effusion. Evaluated by infectious disease who suspects cat scratch fever led to right inguinal lymphadenopathy which led to right knee effusion. Discharge home on azithromycin. Orthopedic follow-up scheduled. Will need to follow up with infectious disease and oncology if symptoms worsen or persist after 2-3 weeks. (2) Cat scratch fever Priority: Primary Status: Acute Comments: suspected. Presented with right inguinal lymphadenopathy and right knee effusion. Low suspicion for STD, HIV etiology as patient reports he was checked for STD and HIV approximately 2 years ago and has been in monogamous relationship since that time. Chlamydia and gonorrhea PCR negative. Patient does have a cat and reported Climbing on leg. Evaluated by infectious diseases suspected Cat scratch disease. Treated with IV Zosyn while inpatient, changed to azithromycin eye discharge. Follow-up with PCP and Ortho (3) Inguinal lymphadenopathy Priority: Primary Status: Acute Comments: secondary to right knee effusion. Pain and lymph node size significantly improved after right knee aspirated. Discussed with Oncology on 02/23/17 and no need for consultation at this time as symptoms are significantly improved. Continue ATB as noted above. Will need to follow up with infectious disease and oncology if symptoms persist and/or worsen over the next 2-3 weeks. (4) Diabetes Priority: Secondary Status: Chronic Comments: per hx. Cont home diabetes regimen. Qualifiers: Diabetes mellitus type: type 2 Diabetes mellitus complication status: without complication Diabetes mellitus police aide insulin use: with assisted use Qualified Code(s): E11.9 - Type 2 diabetes mellitus without complications ; Z79.4 - memorial designer (current) use of insulin; Z79.4 - memorial designer (current) use of insulin; Z79.4 - snf (current) use of insulin; Z79.4 - memorial designer ( current) use of insulin - Discharge Medications Prescriptions: Azithromycin [Zithromax Tri-Carlos Eduardo] 500 mg PO DAILY #4 tablet Home Medications: Insulin Glargine,Hum.rec.anlog [Savannah Lenz U-100] 14 unit SQ QPM 02/21/17 [History] Sertraline [Zoloft] 25 mg PO BID 02/21/17 [History] Azithromycin [Zithromax Tri-Carlos Eduardo] 500 mg PO DAILY #4 tablet 02/23/17 [Rx] Allergies/Adverse Reactions: 3 Allergy/AdvReac Type Severity Reaction Status Date / Time acetaminophen [From Vicodin] Allergy Anaphylaxis Verified 02/21/17 04:49 hydrocodone [From Vicodin] Allergy Anaphylaxis Verified 02/21/17 04:49 Oxycodone [From Percocet] Allergy Anaphylaxis Verified 02/21/17 04:49 Date of admission: 02/21/17 11:39 Primary care physician: Swetha Caba CNP Consults: 02/21/17 11:44 Consult to Infectious Diseases [CONS] Routine Consulting Provider: Infectious Disease [place] Reason for Consult: Patient has had lymphadenopathy in the right groin for three weeks that has now spread to the right knee w/i the past 6 days. Pt. denies multiple sex partners or drug use. Pt. was placed on PO doxycycline and completed 7/10 days before coming to ED. Afebrile w/some nausea. CRP 128 and ESR 130 on admission. Pt. reports having a cat that climbs his legs sometimes. Call Completed: No 02/21/17 13:27 Consult to Warehouse Associate Driver [CONS] Routine Comment: Reason for Consult: Pt. reports he is not compliant w/insulin coverage d/t time mgmt, work, etc. Please assess for dietary and education needs for better DM control. Discharging clinician: Melinda Lancaster Anticipated date of discharge: 02/23/17 - Patient Status Disposition: Home, Self-Care Condition: Good Functional capacity at discharge: independent ambulation Overall status at discharge: patient is progressing back to baseline - Discharge Instructions Instructions: Cat Scratch Disease (DC), Azithromycin (By mouth), Lymphadenopathy (GEN) Follow Up With: Froilan Lopez MD [Non-Partnered Physician] - 02/26/17 10:00 am Swetha Caba CNP [Primary Care Provider] - Additional Instructions: You will need to follow up with infectious disease and oncology if right groin lymph node remains enlarged or gets bigger in the next 2-3 weeks. - Diet and Activity Activity: increase activity as tolerated, resume usual activities as tolerated Diet: diabetic diet Interval History: Seen and examined at bedside. Patient said he had an uneventful night and would like to go home today. Says he feels significantly better. Swelling to right leg is almost gone and right inguinal lymph node swelling significantly improved as well. He reports mild right knee tenderness otherwise has no complaints. He is aware of need to follow up with or so. Also advised to follow-up with infectious disease and oncology if symptoms worsen or persist over the next 2-3 weeks. Hospital course: Mr. Serra is a 41 year old male - Time Spent with Patient Total time spent providing and/or coordinating discharge services: - Constitutional Vitals: Temp Pulse Resp BP Pulse Ox 98.8 F 74 17 117/68 94 02/23/17 11:24 02/23/17 11:24 02/23/17 11:24 02/23/17 11:24 02/23/17 11:24 General appearance: Present: cooperative, A&O X 3, pleasant, answers questions appropriately - Head Head exam: Present: atraumatic, normocephalic - Eye Eye exam: Present: PERRL, conjuntiva pink, sclera anicteric Pupils: Present: PERRL - Neck Neck exam general surgery: Present: supple, trachea midline. Absent: lymphadenopathy - Respiratory Respiratory exam: Present: CTAB. Absent: accessory muscle use, rales, rhonchi, wheezes - Cardiovascular Cardiovascular exam: Present: RRR, +S1, +S2. Absent: diastolic murmur, gallop, rubs, systolic murmur - GI/Abdominal GI/Abdominal exam: Present: normal bowel sounds, soft, no peritoneal signs. Absent: distended, tenderness - Extremities Exam Extremities exam: Present: warm, radial pulses palpable and symmetrical. Absent : calf tenderness, cyanotic, pedal edema Additional comments: Trivial nonpitting edema to right knee. Right inguinal lymph node mildly enlarged; significantly improved from yesterday's exam. - Neurological Exam Neurological exam: Present: CN II-XII intact, oriented X3, no focal deficits. Absent: pronater drift, facial droop, speech deficit - Skin Skin exam: Present: dry, intact
--- NOTE | 2017-02-23 13:28 | Infectious Disease Consult ---
Date of Encounter: 02/23/17 Time of Encounter: 13:26 Assessment and Plan (1) Inguinal lymphadenopathy Status: Acute Assessment and plan: Etiology unclear, but given clinical picture, consider Cat Scratch Disease. Location: Right inguinal area. Failed outpatient oral antibiotics. UTS of the area showed right inguinal adenopathy. CT of the abdomen and pelvis showed right external iliac chain lymphadenopathy as well. The patient does have extensive contact with cats in his own home and at work, but denies any known bites or scratches and I do not see an area of inoculation on exam. The patient reports clinical improvement since being on IV antibiotics. Continue Zosyn 3.375 grams IV Q8H for now. Duration of treatment depends on the clinical picture, but recommend a total of five days. Can switch to PO zithromax when ready for discharge to complete the course of treatment. Recommend close follow-up with PCP after discharge. If lymphadenopathy persists , consider biopsy and Hem/Onc consult. (2) Effusion, right knee Status: Acute Assessment and plan: Etiology unclear, but possibly secondary to lymphadenopathy. Ortho consulted and following. Status post arthrocentesis. 2793 PMNs. Culture negative. Doesn't appear to be septic arthritis, but the patient has been on oral antibiotics for six days prior to admission. Post-arthrocentesis x-ray shows a small residual effusion. Inflammatory markers are markedly improved. Recommend close follow-up with ortho. (3) Diabetes Status: Chronic Qualifiers: Diabetes mellitus type: type 2 Diabetes mellitus complication status: without complication Diabetes mellitus alf insulin use: with intermodal owner operator truck driver use Qualified Code(s): E11.9 - Type 2 diabetes mellitus without complications ; Z79.4 - intermodal owner operator truck driver (current) use of insulin; Z79.4 - intermodal owner operator truck driver (current) use of insulin; Z79.4 - intermodal owner operator truck driver (current) use of insulin; Z79.4 - residential ( current) use of insulin Infectious Disease HPI - Data of Consult Patient: new to practice Consult date: 02/23/17 Requesting Physician: Melinda Lancaster CNP Primary Care Provider: Swetha Caba CNP - Consult Narrative Reason for consult: Inguinal Lymphadenopathy History of present illness: Mr. Serra is a 41 year old male with history of depression, diabetes, and PTSD. The patient was admitted to the hospital February 21 for right inguinal lymphadenopathy. We are consulted February 23 for further recommendations regarding right knee effusion and right inguinal lymphadenopathy. Briefly, the patient's a 41-year-old male with past medical history as stated above. He reports that about 2 weeks ago he began to experience some discomfort in the right groin that he thought was just a pulled groin muscle. He states he subsequently developed increased swelling that he thought was a hernia. He states he was seen by his PCP and had an ultrasound of the area and was diagnosed with lymphadenopathy. He was started on doxycycline 6 days prior to admission, but states this did not help any. He states that last Thursday he was doing okay and morning he woke up with excruciating pain in the right knee and swelling of the right thigh. He states he was seen again by his PCP and instructed to come to the hospital for a CAT scan, but was unable to have this done as an outpatient and he ended up going to the ER on Thursday. On arrival to ER, the patient was afebrile and hemodynamically stable. His white blood cell count was normal. He did have an ESR greater than 130 with a CRP of 128. CT the abdomen and pelvis showed right external iliac chain lymphadenopathy. He also had a right lower survey CT scan that showed a right knee effusion. He was started on Rocephin and Zithromax and was admitted to the hospital for further evaluation. Since admission, the patient has remained afebrile and hemodynamically stable. His white blood cell count has survey normal. His ESR has improved to 60 with a CRP of 52. Orthopedics was consulted and performed an arthrocentesis that had 273 PMNs and the culture was negative. A post arthrocentesis x-ray shows a small joint effusion, but no bony abnormalities. Had a gonorrhea and chlamydia PCR test on that was negative. Blood cultures have been negative 2 sets. He is currently on IV Zosyn. We've been asked to evaluate and make further recommendations. During my exam today, the patient states overall he feels much better since having his knee drained. He reports that the swelling and pain has markedly improved and is currently at 2 out of 10 when it was greater than 10 on admission. He states he has not had any fevers or chills or rigors. He denies any chest pain, shortness of breath, or cough. He denies any nausea or vomiting or diarrhea. He does report some lower right quadrant abdominal discomfort that he related to the swelling in his groin. He states the swelling is groin is also improved as well. He denies any penile discharge or testicular pain. He denies any urinary complaints. He states his appetite is been good. He denies any redness or warmth of the knee joint or at the site of the lymphadenopathy. He denies any oral thrush or new skin lesions. She lives at home with his long-term girlfriend and children. He states that he' s been in monogamous [place] several years and has been sexually active with only his girlfriend. He does report that he has contact with cats at home and he does change litter box and that he is in contact with several cats at work. He denies any recent travel. He is a former smoker and stopped smoking about 3 weeks ago. He denies any alcohol or illicit drug use. CC: Melinda Lancaster, NGOC Past Med Surg Social Fam HX - Past Medical History Attestation: Yes The following information was validated with the patient. Source: patient, old records reviewed, nursing notes reviewed Medical history: diabetes (Insulin controlled) Psychiatric history: depression, PTSD, prior suicide attempt, previous psychiatric hospitalization - Past Surgical History Surgical History: no surgical history - Social History Smoking Status: Former smoker Packs per day: 1 PPD Smokeless Tobacco Status: No Alcohol use: occasionally Drug use: none Occupational status: employed Current living situation: Home - Independent Activity Level: Independent ambulation Recent Out of Country Travel Within the Last 8 Weeks: No Exposure or Possible Exposure to Illness During Travel: No - Family History Father Race: Family Member Ethnicity: Non- Living Status: Age at : 63 Cause of : Pancreatic cancer Hx Family Cancer: Yes (Liver, pancreatic, gallbladder tumors) Mother Race: Family Member Ethnicity: Non- Living Status: Still Living Hx Family Medical Disorders: No Brother Race: Family Member Ethnicity: Non- Living Status: Still Living Hx Family Medical Disorders: No Sister Race: Family Member Ethnicity: Non- Living Status: Still Living Hx Family Endocrine Disorder: Yes (DM) Hx Family Medical Disorders: No Infectious Disease-CN:Meds Insulin Glargine,Hum.rec.anlog [Savannah Lenz U-100] 14 unit SQ QPM 02/21/17 [History] Sertraline [Zoloft] 25 mg PO BID 02/21/17 [History] Azithromycin [Zithromax Tri-Carlos Eduardo] 500 mg PO DAILY #4 tablet 02/23/17 [Rx] 3 Allergy/AdvReac Type Severity Reaction Status Date / Time acetaminophen [From Vicodin] Allergy Anaphylaxis Verified 02/21/17 04:49 hydrocodone [From Vicodin] Allergy Anaphylaxis Verified 02/21/17 04:49 Oxycodone [From Percocet] Allergy Anaphylaxis Verified 02/21/17 04:49 All systems: reviewed and no additional remarkable complaints except as stated Exam - Constitutional Vitals: Temp Pulse Resp BP Pulse Ox 98.8 F 74 17 117/68 94 02/23/17 11:24 02/23/17 11:24 02/23/17 11:24 02/23/17 11:24 02/23/17 11:24 General appearance: average body habitus, cooperative, no acute distress - Head Head exam: Present: atraumatic, normal inspection, normocephalic - Eye Eye exam: Present: EOMI, normal appearance, PERRL Pupils: Present: normal accommodation - ENT ENT exam: Present: mucous membranes moist - Neck Neck exam: Present: normal inspection. Absent: lymphadenopathy - Respiratory Respiratory exam: Present: CTAB. Absent: rales, respiratory distress, rhonchi, wheezes - Cardiovascular Cardiovascular exam: Present: RRR, +S1, +S2 - GI/Abdominal GI/Abdominal exam: Present: normal bowel sounds, soft. Absent: distended, tenderness - Extremities Exam Extremities exam: Present: joint swelling (Trace, right knee; nonerythematous), tenderness (Right distal thigh) Additional comments: Right groin mass noted, non-tender. - Neurological Exam Neurological exam: Present: alert, oriented X3, no focal deficits - Psychiatric Psychiatric exam: Present: normal affect, normal mood - Skin Skin exam: Present: dry, intact, normal color, warm Infectious Disease CN: Results - Labs CBC & Chem 7: 02/23/17 05:35 02/23/17 05:35 Cultures: Cultures 02/21/17 19:00 Body Fluid Culture - Preliminary Synovial Fluid Serology: Serology 02/21/17 Range/Units 19:49 Synovial Source Right knee Synovial Color Straw (Straw) Synovial Appearance Hazy (Clear-Hazy) Synovial Volume 7.0 mL Synovial RBC < 0.002 (0.000 - 0.002) M/mcl Synovial Tot Nuc Cell 2793 H (0-200) TNC/mcL Synovial Band Neuts TNP Synovial Basophils TNP Synovial Eosinophils TNP Synovial Seg Neuts % 66.0 % Synovial Lymphocytes % 13.0 % Synovial Monocytes % 4.0 % Synovial Other Cells % 17.0 % Synovial Crystals No Crystals Seen (None Seen) Consult Discharge Plan - Plan Instructions: Azithromycin (By mouth), Lymphadenopathy (GEN), Diabetes Mellitus Type 2 in Adults (DC), Cat Scratch Disease (DC) Additional Instructions: You will need to follow up with infectious disease and oncology if right groin lymph node remains enlarged or gets bigger in the next 2-3 weeks. Referrals: Froilan Lopez MD [Non-Partnered Physician] - 02/26/17 10:00 am Swetha Caba CNP [Primary Care Provider] - 03/04/17 10:45 am Prescriptions: Azithromycin [Zithromax Tri-Carlos Eduardo] 500 mg PO DAILY #4 tablet
== END 2017-02-23 13:43 | disposition home or self-care (01) | DRG 351 ==
LOC: EMEROO 04:49 → 3BNU 04:49
PROVIDERS: ADMIT Internal Medicine Cardiovascular Disease; ATTEND Registered Nurse